=== PATIENT | male | born 1990 | race Caucasian/White ===

== ENCOUNTER 2018-02-27 23:43 | Emergency (ER) | payer OTHER ==
[2018-02-28] MEDS ORDERED: Raltegravir* 400 MG TAB PO ONE (00:33)
[2018-02-28] MEDS ORDERED: Tenofovir/Emtricitab 200/300 * TAB PO ONE (00:33)
[2018-02-28 00:50] LABS: ABS Basophils 0.1 10^3/ul (0-0.2); ABS Eosinophils 0.2 10^3/ul (0-0.6); ABS Lymphocytes 3.8 10^3/ul (1.0-4.8); ABS Monocytes 0.9 10^3/ul (0-0.8); ABS Neutrophils 5.8 10^3/ul (1.5-7.7); ABS Nucleated RBC 0 10^3/ul; Eosinophil % 2.2 % (0-6); Hematocrit 45 % (42-52); Hemoglobin 15.3 g/dl (14.0-18.0); Lymphocyte % 34.9 % (25-47); Mean Corpuscular HGB Conc 34 g/dl (31-36); Mean Corpuscular Hemoglobin 31 pg (27-31); Mean Corpuscular Volume 91 fL (80-94); Mean Platelet Volume 9.5 um3 (7.4-10.4); Nucleated Red Blood Cells % 0.2; Platelet Count 206 10^3/ul (150-450); Red Blood Count 4.91 10^6/ul (4.00-5.40); Red Cell Distribution Width 13 % (10.5-15); White Blood Count 10.8 10^3/ul (3.5-10.8)
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
[2018-02-28 01:14] LABS: EGFR Non-African American 84.7 (>60)
[2018-02-28 01:48] VITALS: BP 138/75
== END 2018-02-28 01:40 | disposition home or self-care (01) ==
LOC: ED 23:43
DX: Z77.21 Contact with and (suspected) exposure to potentially hazardous body fluids (principal); Z57.9 Occupational exposure to unspecified risk factor
CPT/HCPCS: 36415; 80053; 85025; 86703; 86803; 87340; 99282